=== PATIENT | male | born 1975 | race Caucasian/White ===

== ENCOUNTER 2024-03-16 13:05 | Outpatient (AMB) | payer OTHER, SELFPAY ==
--- NOTE | 2024-03-16 13:10 | MHC.PC.OV ---
Vital Signs 03/16/24 13:14 Weight 216 lb BP 120/90 H Blood Pressure Location Lt brachial Position Sitting Pulse 74 Pulse Source Pulse Oximeter Pulse Oximetry (%) 98 Oxygen Delivery Method Room Air Intake Visit Reasons: Medication Follow Up Intake Note: Patient here to f/u for diabetes. Allergies penicillin V Allergy (Unknown, Verified 03/16/24 13:15) Unknown Penicillins Allergy (Unknown, Verified 03/16/24 13:15) unknown Tobacco use date assessed: 03/16/24 Dental Screening Dental Screen Date: 03/16/24 Did you have a dental visit in the last 12 months?: No Did you have a dental problem in the last 6 months where you did not have access to dental care?: No Was dental information given to patient?: No PFSH Surgical History Hx of excision of mass Family History Father Unknown family medical history Mother HTN (hypertension) Stroke CVD (cardiovascular disease) Diabetes mellitus Lung cancer Liver cancer Substance use disorder Social History Housing: Apartment Alcohol intake: current Alcohol intake frequency: a few times a month Patient Tobacco Use Status: Current everyday Tobacco user Tobacco use type: Cigarette Cigarettes Per Day: 5 Years Smoked: 12 years old e-Cigarette/Vaping Use: Never Used service: No Current occupational status: unemployed Cognitive needs: No Hearing needs: No Vision needs: No Questionnaire Thrive Questionnaire Date Thrive assessed: 09/12/22 AUDIT C Alcohol Use Questionnaire (AUDIT-C) 1. How often do you have a drink containing alcohol?: Never 3. How often do you have six or more drinks on one occasion?: Never Total Score: 0 Score Reviewed/Action Taken: No Physical exam (Primary Care) Vital Signs: Last Vital Signs Pulse 74 03/16/24 13:14 BP 120/90 H 03/16/24 13:14 Pulse Ox 98 03/16/24 13:14 Oxygen Delivery Method Room Air 03/16/24 13:14 Tobacco/Smoking Status: Tobacco use Status Tobacco use date assessed 03/16/24 03/16/24 13:17 Patient Tobacco Use Status Current everyday Tobacco 03/16/24 13:12 Tobacco use type Cigarette 03/16/24 13:12 e-Cigarette/Vaping Use Never Used 03/16/24 13:12 Thrive Assessment: Date of Thrive Assessment Date Thrive assessed 09/12/22 03/16/24 13:12 Results AMB Hemoglobin A1c AMB Hemoglobin A1c 8.9 % Last Edit by BEHZAD Grijalva on 03/16/24 13:39 Results Reviewed Results Reviewed: Laboratory Last Values Hgb A1c (Clinic) 8.9 % (4.0-6.0) H 03/16/24 13:38 Assessment and Plan Assessment & Plan Orders: Orders AMB Hemoglobin A1c Today E11.9 - Type 2 diabetes mellitus without complications Coding
[2024-03-16 13:14] VITALS: BP 120/90; PULSE 74; O2SAT 98
== END 2024-03-16 14:54 | disposition left against medical advice (07) ==
PROVIDERS: PCP Nurse Practitioner Family; Visit Provider Nurse Practitioner Family
DX: E11.9 Type 2 diabetes mellitus without complications (principal)
CPT/HCPCS: 83036

== ENCOUNTER 2024-06-11 08:47 | Outpatient (REF) | payer OTHER, SELFPAY ==
[2024-06-11 09:58] LABS: MANUAL DIFF FLAG NO
[2024-06-11 10:05] LABS: Basophils Absolute Auto 0.1 X10*3/uL (0.0-0.2); Basophils Percent Auto 0.5 % (0-2); Eosinophils Absolute Auto 0.1 X10*3/uL (0.0-0.4); Eosinophils Percent Auto 1.1 % (0-4); Hematocrit 51.7 % (42.0-52.0); Hemoglobin 18.2 g/dl (14.0-18.0); Imm Gran Abs Auto 0.22 X10*3/uL (0.00-0.03); Imm Gran Pct Auto 1.8 % (0.0-0.4); Lymphocytes Absolute Auto 2.6 X10*3/uL (1.2-4.9); Lymphocytes Percent Auto 20.8 % (20-40); Mean Corpuscular HGB Conc 35.2 g/dl (31.0-36.0); Mean Corpuscular Hemoglobin 29.7 pg (27.0-33.0); Mean Corpuscular Volume 84.5 fL (80.0-98.0); Monocytes Absolute Auto 0.9 X10*3/uL (0.1-1.2); Monocytes Percent Auto 7.2 % (2-11); Neutrophils Absolute Auto 8.5 x10*3/uL (2.0-8.3); Neutrophils Percent Auto 68.6 % (45-73); Platelet Count 346 X10*3/uL (160-400); Red Blood Count 6.12 X10*6/uL (4.60-5.80); Red Cell Distribution Width 12.5 % (11.0-16.0); White Blood Count 12.4 X10*3/uL (4.8-10.8)
[2024-06-11 10:44] LABS: Appearance Urine Clear; Color Urine Yellow; Glucose Urine UA >=1000 mg/dL (Negative); Leukocyte Esterase Urine Negative (Negative); Nitrite Urine Negative (Negative); PH 5.5 (5.0-9.0); Specific Gravity - Urine >= 1.030 (1.005-1.025); UMIC TRIGGER UACC YES; Urine Blood Negative (Negative); Urine Ketones Negative (Negative); Urine Protein Negative (Neg-Trace)
[2024-06-11 10:45] LABS: Alanine Aminotransferase 28 U/L (0-40); Albumin Level 4.5 g/dL (3.5-5.0); Alkaline Phosphatase 117 U/L (39-117); Anion Gap 15 (12-20); Aspartate Amino Transferase 15 U/L (5-37); Bilirubin Total 0.3 mg/dL (0.0-1.0); Blood Urea Nitrogen 17 mg/dL (9-16); Calcium 9.8 mg/dL (8.4-10.2); Carbon Dioxide 26 mmol/L (22-29); Chloride 99 mmol/L (96-108); Cholesterol 252 mg/dL (<200); Estimated Glomerular Filt Rate > 60; Glucose Fasting 403 mg/dL (60-99); HDL Cholesterol 36 mg/dL (>40); LDL Cholesterol Calculated 145 mg/dL (<100); Potassium 4.5 mmol/L (3.3-5.1); Sodium 135 mmol/L (135-145); Total Protein 7.9 g/dL (6.5-8.0); Triglycerides 355 mg/dL (<150)
[2024-06-11 10:49] LABS: Bacteria Urine None Seen (None Seen); Hyaline Casts Urine 0-2 /LPF (0-2); RBC Urine 0-2 /HPF (0-2); Squamous Epithelial Cell Urine 0-2 /HPF (0-2); WBC Urine 0-5 /HPF (0-5)
[2024-06-11 10:57] LABS: TSH reflex Free T4 1.25 uIU/mL (0.32-4.0)
[2024-06-11 11:52] LABS: Creatinine Urine 87.89 mg/dL; Microalbum/Creatinine Ratio Ur 45.5 ug/mg cr (<30)
== END 2024-06-11 08:48 | disposition home or self-care (01) ==
LOC: HO.HMGCLDS 08:47
PROVIDERS: PCP Nurse Practitioner Family; Visit Provider Nurse Practitioner Family
DX: E11.9 Type 2 diabetes mellitus without complications (principal)
CPT/HCPCS: 36415; 80053; 80061; 81001; 82043; 82570; 84443; 85025

== ENCOUNTER 2024-06-22 12:39 | Outpatient (REF) | payer OTHER, SELFPAY ==
--- NOTE | ~2024-06-22 | XR_ITS ---
EXAMINATION: XR CHEST CLINICAL INFORMATION: Cough COMPARISON: Chest CT August 2018 TECHNIQUE: 2 views of the chest were obtained. FINDINGS: No significant abnormality is noted involving the heart, lungs, mediastinum, bony thorax or soft tissues. XR/XR chest 2V IMPRESSION: Unremarkable examination. Electronically signed by: Amari Mathews MD 07/13/2024 07:03 AM EDT RP
[2024-06-22 16:18] LABS: MANUAL DIFF FLAG NO
[2024-06-22 16:26] LABS: Basophils Absolute Auto 0.1 X10*3/uL (0.0-0.2); Basophils Percent Auto 0.4 % (0-2); Eosinophils Percent Auto 0.2 % (0-4); Hematocrit 52.4 % (42.0-52.0); Hemoglobin 17.9 g/dl (14.0-18.0); Imm Gran Abs Auto 0.13 X10*3/uL (0.00-0.03); Imm Gran Pct Auto 0.9 % (0.0-0.4); Lymphocytes Percent Auto 21.3 % (20-40); Mean Corpuscular HGB Conc 34.2 g/dl (31.0-36.0); Mean Corpuscular Hemoglobin 29.5 pg (27.0-33.0); Mean Corpuscular Volume 86.3 fL (80.0-98.0); Mean Platelet Volume 10.6 fL (9.4-12.4); Monocytes Absolute Auto 0.8 X10*3/uL (0.1-1.2); Monocytes Percent Auto 5.6 % (2-11); Neutrophils Absolute Auto 10.2 x10*3/uL (2.0-8.3); Neutrophils Percent Auto 71.6 % (45-73); Platelet Count 356 X10*3/uL (160-400); Red Blood Count 6.07 X10*6/uL (4.60-5.80); Red Cell Distribution Width 12.6 % (11.0-16.0); White Blood Count 14.2 X10*3/uL (4.8-10.8)
== END 2024-06-22 12:40 | disposition home or self-care (01) ==
LOC: HO.HMGCX 12:39
PROVIDERS: PCP Nurse Practitioner Family; Visit Provider Nurse Practitioner Family
DX: R05.9 Cough, unspecified (principal); R09.89 Other specified symptoms and signs involving the circulatory and respiratory systems; D72.829 Elevated white blood cell count, unspecified
CPT/HCPCS: 36415; 71046; 85025

== ENCOUNTER 2024-06-22 14:02 | Outpatient (AMB) | payer OTHER, SELFPAY ==
--- NOTE | 2024-06-22 14:04 | A.OFFPC_ITS ---
Vital Signs 06/22/24 14:05 Height 5 ft 4 in Weight 167 lb BMI 28.7 BP 116/60 Blood Pressure Location Lt brachial Position Sitting Pulse 78 Pulse Source Pulse Oximeter Pulse Oximetry (%) 99 Oxygen Delivery Method Room Air Intake Visit Reasons: DM followup Intake Note: Pt is here today for his DM f/u Allergies penicillin V Allergy (Unknown, Verified 06/22/24 15:12) Unknown Penicillins Allergy (Unknown, Verified 06/22/24 15:12) unknown Medication List - Last Reconciled 06/22/24 by RALPH Green- acetaminophen (Tylenol) 325 mg PO Q6H PRN 30 days atorvastatin 40 mg PO BEDTIME 90 days azithromycin For 250 mg dose pack: take 500 mg today (day 1), then 250 mg for 4 days (days 2-5) PO blood sugar diagnostic (FreeStyle Lite Strips) Use to test blood sugar 3 times daily empagliflozin (Jardiance) 10 mg PO DAILY fluticasone propionate 50 mcg/actuation 1 spray intranasal DAILY 30 days FreeStyle Lite Meter (blood-glucose meter) tid testing NS lancets (FreeStyle Lancets) 1 gauge topical QID 30 days lisinopril 10 mg PO DAILY 90 days Tobacco use date assessed: 06/22/24 Dental Screening Dental Screen Date: 06/22/24 Did you have a dental visit in the last 12 months?: Yes Did you have a dental problem in the last 6 months where you did not have access to dental care?: No Was dental information given to patient?: Patient has dentist HPI DM followup HPI Details Pt is a diabetic, on an CLARENCE and a statin. A1C in office today is 8.5. Microalbumin is up to date. Denies polyuria, polydipsia, and neuropathy. Pt denies any signs and symptoms of hypoglycemia and does know how to correct it. Will increase jardiance from 10mg to 25mg. Pt reports not having an eye exam in 5 years, he does have an eye doctor in [place] but he does not want to travel. Leukocytosis noted on recent labs. Repeat labs and chest XR have been ordered. performed today, awaiting results. Denies fever, chills, chest pain, and shortness of breath. Pt is interested in smoking cessation. Will send nicot ine patches. [facility] Surgical History Hx of excision of mass Family History (Reviewed 06/22/24 @ 15:09 by Gurpreet Castorena [facility]) Father Unknown family medical history Mother HTN (hypertension) Stroke CVD (cardiovascular disease) Diabetes mellitus Lung cancer Liver cancer Substance use disorder Social History Housing: Apartment Alcohol intake: current Alcohol intake frequency: a few times a month Patient Tobacco Use Status: Current everyday Tobacco user Tobacco use type: Cigarette Cigarettes Per Day: 5 Years Smoked: 12 years old e-Cigarette/Vaping Use: Never Used service: No Current occupational status: unemployed Cognitive needs: No Hearing needs: No Vision needs: No Questionnaire PHQ-9 Over the last 2 weeks, how often have you been bothered by any of the following problems? 1. Little interest or pleasure in doing things: not at all 2. Feeling down, depressed, or hopeless: not at all 3. Trouble falling or staying asleep, or sleeping too much: not at all 4. Feeling tired or having little energy: not at all 5. Poor appetite or overeating: not at all 6. Feeling bad about yourself - or that you are a failure or have let yourself or your family down: not at all 7. Trouble concentrating on things, such as reading the newspaper or watching television: not at all 8. Moving or speaking so slowly that other people could have noticed. Or the opp osite - being so fidgety or restless that you have been moving around a lot more than usual: not at all 9. Thoughts that you would be better off or of hurting yourself in some way: not at all Total score: 0 Depression Screening Interpretation: Negative Depression Screening Done: Yes [id number] - PHQ-9 Billing: Yes Source: Developed by Drs. Ramin Cordova, Rosy Kaiser, Malick Liu and colleagues, with an educational julainna from [employer]. Thrive Questionnaire Date Thrive assessed: 06/22/24 I am a: Patient What is your living situation today?: I have a steady place to live Within the past 12 months, did the food you bought not last and you didn't have the money to get more?: Never true Within the past 12 months, did you worry whether your food would run out before you got money to buy more?: Never true Do you have trouble paying for medicines?: No Do you have trouble getting transportation to medical appointments?: No Do you have trouble paying your heating and electricity bill?: No Do you have trouble taking care of your child, family member or friend?: No Do you have trouble with day-to-day activities such as bathing, preparing meals, shopping, managing finances, etc.?: No Are you currently unemployed and looking for a job?: No Are you interested in more education?: No THRIVE Score: 0 AUDIT C Alcohol Use Questionnaire (AUDIT-C) 1. How often do you have a drink containing alcohol?: Never Total Score: 0 MYESHA-7 AMB Questionnaire MYESHA-7 Date MYESHA - 7 assessed: 06/22/24 Feeling nervous, anxious, or on edge: 0 = Not at all Not being able to stop or control worryin = Not at all Worrying too much about different things: 0 = Not at all Trouble relaxin = Not at all Being so restless that it is hard to sit still: 0 = Not at all Becoming easily annoyed or irritable: 0 = Not at all Feeling afraid as if something awful might happen: 0 = Not at all Total MYESHA-7 score (0-4 normal; 5-9 mild; 10-14 moderate; 15-21 severe): 0 Source: Developed by Drs. Ramin Cordova, Rosy Kaiser, Malick Liu and colleagues, with an educational julianna from [employer]. Review of Systems Const Reports as per HPI Physical exam (Primary Care) Vital Signs: Last Vital Signs Pulse 78 06/22/24 14:05 BP 116/60 06/22/24 14:05 Pulse Ox 99 06/22/24 14:05 Oxygen Delivery Method Room Air 06/22/24 14:05 BMI result Body Mass Index 28.7 Tobacco/Smoking Status: Tobacco use Status Tobacco use date assessed 06/22/24 06/22/24 14:09 Patient Tobacco Use Status Current everyday Tobacco 06/22/24 14:06 Tobacco use type Cigarette 06/22/24 14:06 e-Cigarette/Vaping Use Never Used 06/22/24 14:06 PHQ-9: PHQ-9 Score PHQ-9: Total score 0 06/22/24 14:15 Depression Screening Interpretation: Negative Thrive Assessment: Date of Thrive Assessment Date Thrive assessed 06/22/24 06/22/24 14:15 Const General: cooperative Orientation/consciousness: patient oriented x3 Resp Effort & Inspection: normal respiratory effort Auscultation: clear to auscultation bilaterally Cardio Rate: regular rate Rhythm: regular rhythm Heart sounds: S1 normal heart sound present and S2 normal heart sound present Neuro General: patient oriented x3 Extrem Other: bilat feet: + sensation with use of monofilament, feet intact Psych Appearance: grossly normal Mental Status: mental status grossly normal Speech and movement: Normal speech and movement present Affect: normal affect Attitude: cooperative Thought process: Normal thought process present Thought content: Normal thought content present Insight: Good insight present (Psych) Judgement: Good judgement present (Psych) Results AMB Hemoglobin A1c AMB Hemoglobin A1c 8.5 % Last Edit by Jayy Iniguez CMA on 06/22/24 14: 50 Assessment and Plan Assessment & Plan (1) Leukocytosis: Code(s): D72.829 - Elevated white blood cell count, unspecified Plan: repeating, getting chest XR. (2) Dyslipidemia: Code(s): E78.5 - Hyperlipidemia, unspecified Plan: On atorvastatin, labs ordered (3) High triglycerides: Code(s): E78.1 - Pure hyperglyceridemia Plan: Labs ordered, restarting statin (4) Diabetes: Code(s): E11.9 - Type 2 diabetes mellitus without complications Plan: Increasing jardiance from 10mg to 25mg Plan The patient agreed to the use of a medical certification specialist for this encounter. Scribed for JOSE ENRIQUE Kebede by Erin Collier medical certification specialist, on 06/22/2024 at 14:15 EST. Orders: Orders AMB Hemoglobin A1c Today E11.9 - Type 2 diabetes mellitus without complications Medications: New nicotine (Nicoderm CQ) 1 patch transdermal DAILY 28 ea 0RF cyclobenzaprine 5 mg PO BEDTIME PRN 20 tabs 0RF muscle spasm Changed From acetaminophen (Tylenol) 325 mg PO Q6H 30 days PRN 120 tabs 0RF fever or pain To acetaminophen (Tylenol) 650 mg (2 x 325 mg) PO Q8H 30 days PRN 120 tabs 0RF fever or pain From empagliflozin (Jardiance) 10 mg PO DAILY 30 tabs 2RF To empagliflozin 25 mg PO DAILY 90 tabs 2RF Refilled lisinopril 10 mg PO DAILY 90 days 90 tabs 1RF Coding Level of Care Code Est Pt Level 3 (25280) Diagnoses Leukocytosis D72.829 Dyslipidemia E78.5 High triglycerides E78.1 Diabetes E11.9
[2024-06-22 14:05] VITALS: BP 116/60; PULSE 78; O2SAT 99; BMI 28.7
== END 2024-06-22 14:34 | disposition home or self-care (01) ==
PROVIDERS: PCP Nurse Practitioner Family; Visit Provider Nurse Practitioner Family
DX: D72.829 Elevated white blood cell count, unspecified (principal); E78.5 Hyperlipidemia, unspecified; E78.1 Pure hyperglyceridemia; E11.9 Type 2 diabetes mellitus without complications
CPT/HCPCS: 83036; 99213

== ENCOUNTER 2025-04-28 10:21 | Outpatient (AMB) | payer OTHER, SELFPAY ==
--- NOTE | 2025-04-28 10:31 | A.OFFPC_ITS ---
Vital Signs 04/28/25 10:32 Height 5 ft 4 in Weight 167 lb BMI 28.7 BP 130/74 Blood Pressure Location Lt brachial Position Sitting Pulse 92 Pulse Source Pulse Oximeter Pulse Oximetry (%) 98 Oxygen Delivery Method Room Air Intake Visit Reasons: Meds review- A1C needed Preflight Mechanic Required: No Accompanied by: Self / Same As Patient Allergies penicillin V Allergy (Unknown, Verified 04/28/25 10:32) Unknown Penicillins Allergy (Unknown, Verified 04/28/25 10:32) unknown Tobacco use date assessed: 04/28/25 Dental Screening Dental Screen Date: 06/22/24 HPI Meds review- A1C needed HPI Details Chief Complaint The patient presents for follow-up regarding elevated blood glucose levels. History of Present Illness The patient is a 49-year-old male presenting with follow-up for diabetes management. His hemoglobin A1c is elevated at 9, indicating poor glycemic control. He is currently taking Jardiance 25 mg but did not tolerate metformin. He refuses injectable treatments, including insulin and GLP-1 agonists, and has been prescribed glipizide 10 mg. The patient is aware of the signs and symptoms of hypoglycemia and how to manage them. He is not interested in undergoing a colonoscopy at this time and prefers the Cologuard test for colon cancer screening. The patient reports nodules on the palmar aspect of his hands, specifically inferior to fingers 4 and 5, consistent with Dupuytren's contracture. He will be referred to a specialist for further evaluation. The patient is a smoker and has been advised to participate in a low-dose CT scan program for lung cancer screening. Social History - Smoking: The patient is a smoker and h as been advised to participate in a low- dose CT scan program for lung cancer screening. Health Maintenance - Colon cancer screening: Patient prefer s Cologuard test over colonoscopy. - Lung cancer screening: Advised to part icipate in a low-dose CT scan program due to smoking history. Review of Systems - Endocrine: Reports elevated blood gluc ose levels. - Musculoskeletal: Reports nodules on th e palmar aspect of bilateral hands, consistent with Dupuytren's contracture. denies any CP, SOB, neuropathy, constipation, diarrhea, si or hi Physical Exam General: Cooperative, healthy appearing, comfortable, no acute distress and well developed Orientation: Patient oriented x3 Limitations: No limitations Head: Normal to inspection Ears: Hearing grossly normal bilaterally Nose: Normal external nose present Face and sinus: Normal facial exam Eyes: Appearance normal, both eyes and all related structures Neck: Normal visual inspection and Yes full ROM Respiratory: Normal respiratory effort and able to speak in complete sentences. Clear to auscultation bilaterally Cardiovascular: Regular rate and rhythm. Normal S1 and S2 GI: Normal to inspection. Soft to palpation and nontender Skin: No rashes or lesions noted Neuro: Patient oriented x3 Extremities: Nodules present on the palmar aspect of bilateral hands, just inferior to fingers 4 and 5, related to Dupuytren's contracture. + sensation with use of monofilament, intact bilat (feet) Results - Labs: Hemoglobin A1c elevated at 9%. Plan The patient's diabetes management plan includes continuing Jardiance 25 mg and starting glipizide 10 mg due to intolerance to metformin and refusal of injectable therapies. He is educated on recognizing and managing hypoglycemia. For colon cancer screening, the patient prefers the Cologuard test, and arrangements will be made accordingly. Due to his smoking history, he is advised to undergo a low-dose CT scan for lung cancer screening. The patient reports nodules on his hands consistent with Dupuytren's contracture and will be referred to a specialist for further evaluation. Follow-up is scheduled in four months to reassess his condition and management plan. He reports his finger (pointing to bilat fingers 4+5 get caught in the flexed position) Discussion Notes I discussed with the patient the importance of managing his diabetes and the options available, including the continuation of Jardiance and the addition of glipizide. We reviewed the signs of hypoglycemia and how to address them. For colon cancer screening, we talked about the Cologuard test as an alternative to colonoscopy, which he prefers. Given his smoking history, I recommended a low-dose CT scan for lung cancer screening. The patient will be referred to a specialist for the nodules on his hands, suspected to be Dupuytren's contracture. We agreed on a follow-up in four months to evaluate his progress and adjust the management plan as needed. Patient Instructions - Continue taking Jardiance [address] art glipizide 10 mg as prescribed. - Monitor for signs of low blood sugar a nd know how to treat it. - Complete the Cologuard test for colon cancer screening. - Schedule a low-dose CT scan for lung c gayatri screening. - Follow up in four months for reassessm ent. PFSH Surgical History Hx of excision of mass Family History Father Unknown family medical history Mother HTN (hypertension) Stroke CVD (cardiovascular disease) Diabetes mellitus Lung cancer Liver cancer Substance use disorder Social History Housing: Apartment Alcohol intake: current Alcohol intake frequency: a few times a month Patient Tobacco Use Status: Current everyday Tobacco user Tobacco use type: Cigarette Cigarettes Per Day: 5 Years Smoked: 12 years old e-Cigarette/Vaping Use: Never Used service: No Current occupational status: unemployed Cognitive needs: No Hearing needs: No Vision needs: No Questionnaire Thrive Questionnaire Date Thrive assessed: 06/22/24 MYSEHA-7 AMB Questionnaire MYESHA-7 Date MYESHA - 7 assessed: 06/22/24 Source: Developed by Drs. Ramin Cordova, Rosy Kaiser, Malick Liu and colleagues, with an educational julianna from [employer]. Physical exam (Primary Care) Vital Signs: Last Vital Signs Pulse 92 04/28/25 10:32 BP 130/74 04/28/25 10:32 Pulse Ox 98 04/28/25 10:32 Oxygen Delivery Method Room Air 04/28/25 10:32 BMI result Body Mass Index 28.7 Tobacco/Smoking Status: Tobacco use Status Tobacco use date assessed 04/28/25 04/28/25 10:33 Patient Tobacco Use Status Current everyday Tobacco 04/28/25 10:31 Tobacco use type Cigarette 04/28/25 10:31 e-Cigarette/Vaping Use Never Used 04/28/25 10:31 Thrive Assessment: Date of Thrive Assessment Date Thrive assessed 06/22/24 04/28/25 10:31 Results AMB Hemoglobin A1c AMB Hemoglobin A1c 9.9 % Last Edit by Jayy Iniguez CMA on 04/28/25 11: 57 Immunizations pneumoc 20-robyn conj-dip cr(PF) 0.5 mL IM syringe Performing Provider: JOSE ENRIQUE Green Performing Location: [facility] Administered by: Jayy Iniguez CMA on 04/28/25 12:02 Dose Route Admin Location Dispensed Lot Number Expiration Date NDC Drilling Fluids Specialist 0.5 mL IM Right Deltoid 0.5 mL [id number] 04/15/26 [employer] Total Dispensed Waste 0.5 mL 0 % VIS Given Date VIS Provided VIS Publication Date 04/28/25 Single Vaccine 25 Eligibility Eligibility Date Funding Source Not [facility] Eligible 04/28/25 Private Results Reviewed Results Reviewed: Laboratory Last Values Hgb A1c (Clinic) 9.9 % (4.0-6.0) H 04/28/25 11:42 Coding Level of Care Code Est Pt Level 3 (56709) Diagnoses Dupuytren's contracture of both hands M72.0 Screening for prostate cancer Z12.5 Smoker F17.200 Diabetes E11.9 Assessment & Plan Assessment & Plan (1) Dupuytren's contracture of both hands: Code(s): M72.0 - Palmar fascial fibromatosis [Dupuytren] Category: Medical (2) Screening for prostate cancer: Code(s): Z12.5 - Encounter for screening for malignant neoplasm of prostate Category: Medical (3) Smoker: Code(s): F17.200 - Nicotine dependence, unspecified, uncomplicated Category: Social Hx (4) Diabetes: Code(s): E11.9 - Type 2 diabetes mellitus without complications Category: Medical Plan . Orders: Orders [place]. Panel Fast Today E11.9 - Type 2 diabetes mellitus without complications UA CC w/rflx Micro + Cult Today E11.9 - Type 2 diabetes mellitus without complications Lipid Panel Today E11.9 - Type 2 diabetes mellitus without complications Prostate Specific Antigen Scr Today Z12.5 - Encounter for screening for malignant neoplasm of prostate AMB Hemoglobin A1c Today Z13.9 - Encounter for screening, unspecified Complete Blood Count Auto Diff Today E11.9 - Type 2 diabetes mellitus without complications TSH reflex Free T4 Today E11.9 - Type 2 diabetes mellitus without complications Pneumococcal 20 Immunization Today Z23 - Encounter for immunization Referrals Cologuard Test Z12.11 - Encounter for screening for malignant neoplasm of colon, Z12.12 - Encounter for screening for malignant neoplasm of rectum Ophthalmology Referral E11.9 - Type 2 diabetes mellitus without complications Orthopedics Referral M72.0 - Palmar fascial fibromatosis [Dupuytren] Lung Cancer Screening Referral F17.200 - Nicotine dependence, unspecified, uncomplicated Medications: New glipizide ER 10 mg PO DAILY 30 tabs 2RF 30 days
[2025-04-28 10:32] VITALS: BP 130/74; PULSE 92; O2SAT 98; BMI 28.7
== END 2025-04-28 12:03 | disposition home or self-care (01) ==
LOC: HO.HMCC 10:22
PROVIDERS: PCP Nurse Practitioner Family; Visit Provider Nurse Practitioner Family
DX: M72.0 Palmar fascial fibromatosis [Dupuytren] (principal); Z12.5 Encounter for screening for malignant neoplasm of prostate; F17.200 Nicotine dependence, unspecified, uncomplicated; E11.9 Type 2 diabetes mellitus without complications; Z13.9 Encounter for screening, unspecified; Z23 Encounter for immunization

== ENCOUNTER → 2025-04-28 10:21 | Outpatient (BNVA) | payer OTHER, SELFPAY | PROVIDERS: PCP Nurse Practitioner Family; Visit Provider Nurse Practitioner Family | DX: E11.9 Type 2 diabetes mellitus without complications (principal); M72.0 Palmar fascial fibromatosis [Dupuytren]; F17.210 Nicotine dependence, cigarettes, uncomplicated; Z23 Encounter for immunization; Z79.899 Other long term (current) drug therapy | CPT/HCPCS: 83036; 90471; 90677; 99212 ==

== ENCOUNTER 2025-07-05 13:27 | Outpatient (AMB) | payer OTHER, SELFPAY ==
[2025-07-05 14:11] VITALS: BMI 28.7
--- NOTE | 2025-07-05 14:11 | A.OFFVIS_ITS ---
Vital Signs 07/05/25 14:11 Height 5 ft 4 in Weight 167 lb BMI 28.7 Intake Visit Reasons: N/P B/L hand trigger fingers Intake Note: Shahriar 49 yr old right hand dominant male who is disabled, presents today for a new patient visit for an evaluation for triggering of bilateral middle fingers. States his left is worse. States he noticed this about 7 months ago and has grad ually worsen. Reports this cause him pain and discomfort when attempting to put hands in gloves or in cold weathers. No injury. He also has tingling in his hands and once in a blue he will feel tingling in his fingers. Hx of DM. 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 He complains of painful locking & catching of his bilateral middle fingers. He also complains of occasional numbness & tingling in his hands. Symptoms intermittent and occasional, primarily in the mornings. He denies any prior treatment options He is a Diabetic, his most recent HgA1c was 9.9% on 04/28/25. PFSH Surgical History Hx of excision of mass Family History Father Unknown family medical history Mother HTN (hypertension) Stroke CVD (cardiovascular disease) Diabetes mellitus Lung cancer Liver cancer Substance use disorder Social History (Updated 07/05/25 @ 14:27 by BEHZAD Leonard) Housing: Apartment Alcohol intake: current Alcohol intake frequency: a few times a month Patient Tobacco Use Status: Current everyday Tobacco user Tobacco use type: Cigarette Cigarettes Per Day: 5 Years Smoked: 12 years old e-Cigarette/Vaping Use: Never Used service: No Current occupational status: unemployed and disabled Current occupation: rt hand Cognitive needs: No Hearing needs: No Vision needs: No Review of Systems Const All systems reviewed & are unremarkable except as noted in HPI and below Physical Exam Vital Signs: BMI result Body Mass Index 28.7 Const General: cooperative, healthy appearing and no acute distress Orientation/consciousness: patient oriented x3 HEENT Head: Yes normocephalic and Yes atraumatic Eyes EOM: EOMs intact bilaterally Resp Effort & Inspection: normal respiratory effort and able to speak in complete sentences Cardio Jugular venous distension: no JVD Skin General skin exam: turgor normal Rashes: no rashes Neuro General: patient oriented x3 Extrem Other: Evaluation of Bilateral Upper Extremity: The patient is alert, oriented, and in no acute distress Neuro: Median, Ulnar, Radial nerves motor and sensory intact and sensation is normal to the tips of all digits Vascular: Cap refill brisk ROM: He can make a fist and extend all his digits Visible & palpable locking & catching of the middle finger bilaterally Tender over the middle finger a1 eulalia bilaterally Skin: No lacerations or abrasions. General: No Ecchymosis. No Erythema or evidence of infection. Dupuytrens nodule between proximal & distal mid-palmar crease, in line with the small finger, bilaterally No cords or contractures Psych Appearance: grossly normal Affect: normal affect Attitude: cooperative Assessment & Plan Assessment & Plan (1) Trigger finger, left middle finger: Code(s): M65.332 - Trigger finger, left middle finger Category: Medical (2) Trigger finger, right middle finger: Code(s): M65.331 - Trigger finger, right middle finger Category: Medical (3) Bilateral hand numbness: Code(s): R20.0 - Anesthesia of skin Category: Medical (4) Type 2 diabetes mellitus without complications: Code(s): E11.9 - Type 2 diabetes mellitus without complications Category: Medical (5) Smoker: Code(s): F17.200 - Nicotine dependence, unspecified, uncomplicated Category: Social Hx (6) 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 Left middle finger trigger finger 2. Right middle finger trigger finger I educated him about this condition I discussed operative and non-operative treatment options Unfortunately his most recent HgA1c was 9.9% on 04/28/25, and he is not a surgical candidate at this time. He will need an updated HgA1c that is <8.1% in order to proceed with surgery, and he expressed understanding. When his Diabetes management is better, we can discuss a possible steroid injection vs surgery Otherwise he can follow up prn. 3. Bilateral hand tingling Symptoms intermittent & occasional, worse in the mornings I ordered a NCS to assess for peripheral nerve compression 4. Bilateral Dupuytrens disease Nodule in line with the small finger No cords or contractures I educated him about this condition I discussed treatment options No intervention warranted at this time He should work to maintain his ROM at home If his symptoms increase in severity or he develops a new contracture, he can follow up to discuss treatment options Scribed for Jerri Molina MD by Ang Lopez, medical safety director, on 07/05/25 at 2:55 PM, EST. Orders: Orders NE nerve conduction velocity Today R20.0 - Anesthesia of skin, R20.2 - Paresthesia of skin NE electromyogram (EMG) Today R20.0 - Anesthesia of skin, R20.2 - Paresthesia of skin Coding Level of Care Code New Pt Level 4 (78472) Diagnoses Trigger finger, left middle finger M65.332 Trigger finger, right middle finger M65.331 Bilateral hand numbness R20.0 Type 2 diabetes mellitus without complications E11.9 Smoker F17.200 Dupuytren's disease of both palm and finger M72.0
--- OUTSIDE RECORDS SUMMARY | 2025-07-05 15:54 | XMS_ITS | Clinical Summary ---
Author Organization [facility] it Address [address] [place] [address] Care Team Providers Care Business Lawyer Name Role Phone Unavailable Primary Care Provider Unavailabl e Social History Tobacco Use Types Packs/Day Years Used Date Smoking Tobacco: Never Assessed Sex and Gender Information Value Date Recorded Sex Assigned at Not on file Legal Sex Male 2:58 AM EST Gender Identity Not on file Sexual Orientation Not on file Plan of Treatment Health Maintenance Due Date Last Done Comments DTaP,Tdap,and Td Vaccines (1 - Tdap) 1994 Hepatitis B Vaccines (1 of 3 - 19+ 3-dose series) 1994 Depression Screening 10/27/2024 COVID-19 Vaccine (1 - 2023-2 5 season) 2025 Influenza Vaccine (#1) 2025 HIB Vaccines Aged Out No longer eligi ble based on patient's age to complete this topic HPV Vaccines Aged Out No longer eligi ble based on patient's age to complete this topic Hepatitis A Vaccines Aged Out No long er eligible based on patient's age to complete this topic IPV Vaccines Aged Out No longer eligi ble based on patient's age to complete this topic MMR Vaccines Aged Out No longer eligi ble based on patient's age to complete this topic Meningococcal ACWY Vaccine Aged Out N o longer eligible based on patient's age to complete this topic Meningococcal B Vaccine Aged Out No l onger eligible based on patient's age to complete this topic Pneumococcal Vaccine: Pediat rics (0 to 5 Years) and At-Risk Patients (6 to 49 Years) Aged Out No longer eligible b ased on patient's age to complete this topic RSV Immunization Patients Un jayesh 20 months Aged Out No longer eligible b ased on patient's age to complete this topic Varicella Vaccines Aged Out No longer eligible based on patient's age to complete this topic
== END 2025-07-05 15:09 | disposition home or self-care (01) ==
PROVIDERS: PCP Nurse Practitioner Family; Visit Provider Orthopaedic Surgery
DX: M65.332 Trigger finger, left middle finger (principal); M65.331 Trigger finger, right middle finger; R20.0 Anesthesia of skin; E11.9 Type 2 diabetes mellitus without complications; F17.200 Nicotine dependence, unspecified, uncomplicated; M72.0 Palmar fascial fibromatosis [Dupuytren]
CPT/HCPCS: 99204

== ENCOUNTER → 2025-07-05 13:27 | Outpatient (BNVA) | payer OTHER, SELFPAY | PROVIDERS: PCP Nurse Practitioner Family; Visit Provider Orthopaedic Surgery | DX: M65.332 Trigger finger, left middle finger (principal); M65.331 Trigger finger, right middle finger; M72.0 Palmar fascial fibromatosis [Dupuytren]; E11.9 Type 2 diabetes mellitus without complications; F17.200 Nicotine dependence, unspecified, uncomplicated | CPT/HCPCS: 99202 ==

== ENCOUNTER 2025-07-21 10:52 | Outpatient (REF) | payer OTHER, SELFPAY ==
[2025-07-21 13:14] LABS: MANUAL DIFF FLAG NO
[2025-07-21 13:17] LABS: Hematocrit 53.7 % (42.0-52.0); Hemoglobin 18.0 g/dl (14.0-18.0); Imm Gran Abs Auto 0.14 X10*3/uL (0.00-0.03); Imm Gran Pct Auto 1.2 % (0.0-0.4); Lymphocytes Absolute Auto 2.5 X10*3/uL (1.2-4.9); Mean Corpuscular HGB Conc 33.5 g/dl (31.0-36.0); Mean Corpuscular Hemoglobin 29.7 pg (27.0-33.0); Mean Corpuscular Volume 88.6 fL (80.0-98.0); NRBC Abs Auto 0.000 X10*3/uL (0.0-0.012); NRBC Pct Auto 0.0 /100WBC (0.0-0.2); Platelet Count 347 X10*3/uL (160-400); Red Blood Count 6.06 X10*6/uL (4.60-5.80); White Blood Count 11.3 X10*3/uL (4.8-10.8)
[2025-07-21 13:25] LABS: Appearance Urine Clear; Glucose Urine UA >=1000 mg/dL (Negative); PH 5.5 (5.0-9.0); Specific Gravity - Urine >= 1.030 (1.005-1.025); UMIC TRIGGER UACC YES
[2025-07-21 13:50] LABS: UACC Culture Trigger YES
[2025-07-21 13:55] LABS: Alanine Aminotransferase 26 U/L (0-40); Albumin Level 4.8 g/dL (3.5-5.0); Alkaline Phosphatase 110 U/L (39-117); Anion Gap 14 (12-20); Aspartate Amino Transferase 28 U/L (5-37); Blood Urea Nitrogen 19 mg/dL (9-16); Calcium 9.6 mg/dL (8.4-10.2); Carbon Dioxide 28 mmol/L (22-29); Chloride 99 mmol/L (96-108); Cholesterol 253 mg/dL (<200); Estimated Glomerular Filt Rate > 60; HDL Cholesterol 31 mg/dL (>40); Potassium 4.2 mmol/L (3.3-5.1); Sodium 137 mmol/L (135-145); Total Protein 7.9 g/dL (6.5-8.0); Triglycerides 386 mg/dL (<150)
== END 2025-07-21 10:53 | disposition home or self-care (01) ==
LOC: HO.HMGCLDS 10:52
PROVIDERS: PCP Nurse Practitioner Family; Visit Provider Nurse Practitioner Family
DX: Z12.5 Encounter for screening for malignant neoplasm of prostate (principal); E11.9 Type 2 diabetes mellitus without complications; E78.1 Pure hyperglyceridemia
CPT/HCPCS: 36415; 80053; 80061; 81001; 84153; 84443; 85025; 87086

== ENCOUNTER 2025-10-06 12:12 | Outpatient (REF) | payer OTHER, SELFPAY ==
--- NOTE | 2025-10-06 12:15 | EMG_ITS ---
Chief complaint: Left wrist and hand pain Reason for referral: Evaluate for Carpal Tunnel Syndrome Referred by: Dr. Molina Procedure done: Patient says left is severe in wanted to do left side today, left upper extremity NCS/EMG done Precautions and/or limitations: None The limb temperature was monitored continuously and remained between 32-36 degrees C during the performance of the NCS. Nerve Conduction Studies Anti Sensory Summary Table ?Stim Site NR Onset (ms) Norm Onset (ms) Peak (ms) Norm Peak (ms) O-P Amp (?V) Norm O-P Amp Site1 Site2 Delta-0 (ms) Dist (cm) Art (m/s) Norm Art (m/s) Left Median Anti Sensory (2nd Digit) Wrist ? 4.3 5.4 <3.6 14.0 >10 Wrist 2nd Digit 4.3 14.0 33 Left Radial Anti Sensory (Thumb) Forearm ? 1.8 2.3 <3.1 25.1 Forearm Thumb 1.8 0.0 Left Ulnar Anti Sensory (5th Digit) Wrist ? 2.5 3.2 <3.7 25.9 >15.0 Wrist 5th Digit 2.5 14.0 56 Motor Summary Table ?Stim Site NR Onset (ms) Norm Onset (ms) O-P Amp (mV) Norm O-P Amp iAmp (mV) Amp (1st) (%) Site1 Site2 Delta-0 (ms) Dist (cm) Art (m/s) Norm Art (m/s) Left Median Motor (Abd Poll Brev) Wrist ? 7.4 <3.9 3.6 >4.5 4.2 100.0 Elbow Wrist 3.9 20.0 51 >45 Elbow ? 11.3 2.5 3.0 69.4 Left Ulnar Motor (Abd Dig Minimi) Wrist ? 2.7 <3.0 6.6 >5 7.4 100.0 B Elbow Wrist 3.6 20.0 56 >45 B Elbow ? 6.3 6.1 6.9 92.4 A Elbow B Elbow 1.4 10.0 71 >45 A Elbow ? 7.7 5.9 6.7 89.4 EMG ?Side Muscle Nerve Root Ins Act Fibs Psw Amp Dur Poly Recrt Int Pat Comment Left 1stDorInt Ulnar C8-T1 Nml Nml Nml Nml Nml 0 Nml Complete Left FlexCarRad Median C6-7 Nml Nml Nml Nml Nml 0 Nml Complete Left FlexCarpiUln Ulnar C8,T1 Nml Nml Nml Nml Nml 0 Nml Complete Left Biceps Musculocut C5-6 Nml Nml Nml Nml Nml 0 Nml Complete Left Triceps Radial C6-7-8 Nml Nml Nml Nml Nml 0 Nml Complete Left Deltoid Axillary C5-6 Nml Nml Nml Nml Nml 0 Nml Complete FINDINGS: Left median motor nerve showed prolonged distal latency, small amplitude and normal conduction velocity. Left median sensory nerve showed prolonged peak latency. All other nerves tested were within normal. Concentric needle EMG was performed in selected muscles of the left upper extremity. Study did not reveal signs of electric abnormalities as shown in the table above. IMPRESSION: 1. This is an abnormal study. 2. There is electrodiagnostic evidence for left moderate-severe median neuropathy at the wrist, consistent with carpal tunnel syndrome. 3. There is no electrodiagnostic evidence for ulnar neuropathy, brachial plexopathy, or cervical radiculopathy. Thank you for your kind referral. Sapphire Moran MD, ADELIA Board Certified, [place] Board of Physical Medicine and Rehabilitation (ABPMR) Board Certified, [place] Board of Electrodiagnostic Medicine (ABEM) CODIN [id number] x 1 extremity MTDD
== END 2025-10-06 12:13 | disposition home or self-care (01) ==
LOC: HO.NEURO 12:12
PROVIDERS: PCP Nurse Practitioner Family; Visit Provider Orthopaedic Surgery
DX: R20.0 Anesthesia of skin (principal); R20.2 Paresthesia of skin; M79.642 Pain in left hand; M25.532 Pain in left wrist
CPT/HCPCS: 95886; 95909

== ENCOUNTER → 2025-10-06 12:15 | Outpatient (BNV) | payer OTHER, SELFPAY | PROVIDERS: PCP Nurse Practitioner Family; Visit Provider Physical Medicine & Rehabilitation | DX: G56.02 Carpal tunnel syndrome, left upper limb (principal) | CPT/HCPCS: 95886; 95909 ==